=== PATIENT | male | born 1990 | race African-American/Black ===

== ENCOUNTER 2020-01-11 14:31 | Emergency (ER) | payer OTHER, SELFPAY ==
--- NOTE | ~2020-01-11 | XR_ITS ---
EXAMINATION: XR chest 1V portable EXAM DATE: 01/11/2020 15:49 INDICATION: Headache, cough. Exposed to COVID-19. TECHNIQUE: Portable AP frontal chest x-ray was obtained. Comparison is made to prior examination from 05/29/2019. FINDINGS: The lungs are clear. There are no pleural effusions. The cardiomediastinal silhouette is within normal limits. There is no pneumothorax suspected. The bones and soft tissues are unremarkab le. IMPRESSION: No acute cardiopulmonary findings. Reviewed, dictated and finalized at location A.
[2020-01-11 15:16] VITALS: BP 101/75; PULSE 57; RESP 18; TEMP 37; O2SAT 100
--- NOTE | 2020-01-11 15:27 | ED.GENADULT ---
HPI - General Adult General Chief complaint: Chest Pain <Bal Matos PA-C - Last Filed: 01/11/20 17:20> Stated complaint: sob, cough <Bal Matos PA-C - Last Filed: 01/11/20 17:20> Time Seen by Provider: 01/11/20 14:40 <Bal Matos PA-C - Last Filed: 01/11/20 17:20> Source: patient <Bal Matos PA-C - Last Filed: 01/11/20 17:20> Mode of arrival: ambulatory <Bal Matos PA-C - Last Filed: 01/11/20 17:20> Limitations: no limitations <Bal Matos PA-C - Last Filed: 01/11/20 17:20> History of Present Illness HPI narrative: Patient is a 29-year-old male who presents to emergency department for evaluation of upper respiratory symptoms for the last several days patient notes some shortness of breath associated with the cough patient denies known sick contacts but has been around other individuals. Patient denies fever vomiting diarrhea. Patient was tested 2 weeks ago and had a negative COVID test but did not have symptoms at that time. Patient on arrival resting comfortably in the room in no distress <Bal Matos PA-C - Last Filed: 01/11/20 17:20> Related Data Allergies/adverse reactions: Allergies Allergy/AdvReac Type Severity Reaction Status Date / Time No Known Allergies Allergy Verified 05/29/19 21:52 <Bal Matos PA-C - Last Filed: 01/11/20 17:20> Review of Systems Review of Systems: All systems reviewed & are unremarkable except as noted in HPI and below <Bal Matos PA-C - Last Filed: 01/11/20 17:20> [facility] Past Medical History Medical History: Medical History Broken jaw <Bal Matos PA-C - Last Filed: 01/11/20 17:20> Surgical History Surgical History: Surgical History History of mandibular surgery <JOCELYNN Bui Last Filed: 01/11/20 17:20> Family History Family History: Family History Sibling Heart problem Has had heart surgery <Bal Matos PA-C - Last Filed: 01/11/20 17:20> Social History Social History: Social History Additional smoking assessment comments: Smokes 1 cigarillo a day Alcohol intake: current Substance use type: marijuana Gender identity (if verbalized by the patient): Male <Bal Matos PA-C - Last Filed: 01/11/20 17:20> Exam Narrative: Exam Narrative: GENERAL: Well-appearing, well-nourished, and in no acute distress. HEAD: Normocephalic, atraumatic. EYES: PERRLA and EOMI. ENT: Nares clear, no rhinorrhea or epistaxis. Mucous membranes moist. Oropharynx without tonsillar hypertrophy exudate or other lesions. CHEST: Clear to auscultation. No respiratory distress. No wheezes rales or rhonchi HEART: Regular rate and rhythm. No murmur heard. EXTREMITIES: Normal range of motion. No edema. SKIN: Warm, dry, no rash. NEURO: No focal deficits. Alert and oriented x3. PSYCH: Normal mood and affect. <Bal Matos PA-C - Last Filed: 01/11/20 17:20> Course Course Emergency Course: Patient in the room in no distress aware of case findings treatment plan and diagnosis agreeing to follow-up with primary care and to self quarantine until COVID-19 results have been obtained patient in the room in no distress no pneumonia or other high risk changes in the blood work or imaging felt appropriate for outpatient reevaluation given reasons to return <Bal Matos PA-C - Last Filed: 01/11/20 17:20> Vital Signs Vital signs: Vital Signs Temperature 98.6 F 01/11/20 15:16 Pulse Rate 57 L 01/11/20 15:16 Respiratory Rate 18 01/11/20 15:16 Blood Pressure 101/75 01/11/20 15:16 Pulse Oximetry 100 01/11/20 15:16 Temperature 98.6 F 01/11/20 15:16 Pulse Rate 58 L 01/11/20 17:18
--- NOTE | 2020-01-11 15:28 | ECG_ITS ---
Measurements Intervals [place] Rate: 57 P: 59 NV: 154 QRS: 42 QRSD: 87 T: -25 QT: 367 QTc: 360 Interpretive Statements SINUS BRADYCARDIA VOLTAGE CRITERIA FOR LVH ST ELEVATION CONSISTENT WITH PERICARDITIS, OR EARLY REPOLARIZATION T WAVE ABNORMALITY IN INFERIOR LEADS- CONSIDER ISCHEMIA ABNORMAL ECG Electronically Signed On 01-12-2020 10:49:14 CDT by Jordi Horan D.O.
[2020-01-11 16:00] LABS: Basophils Percent Auto 0.6 % (0.2-1.2); Eosinophils Absolute Auto 0.1 K/mm3 (0-0.3); Eosinophils Percent Auto 2.2 % (0-4.4); Hematocrit 44.3 % (42.0-52.0); Hemoglobin 14.7 g/dL (14.0-18.0); Immature Granulocyte Absolute 0.02 K/mm3 (0.00-0.031); Immature Granulocyte Percent A 0.4 % (0-0.5); Lymphocytes Percent Auto 38.5 % (18.3-44.2); Mean Corpuscular HGB Conc 33.2 g/dl (32-36); Mean Corpuscular Hemoglobin 29.6 pg (26-34); Mean Corpuscular Volume 89.3 fl (80-100); Mean Platelet Volume 11.1 fl (7.4-10.4); Monocytes Absolute Auto 0.4 K/mm3 (0.1-0.6); Monocytes Percent Auto 6.4 % (2.6-8.5); Neutrophils Absolute Auto 2.8 K/mm3 (1.3-6.7); Neutrophils Percent Auto 51.9 % (45.5-73.1); Platelet Count Result 198 k/mm3 (150-375); Red Blood Count 4.96 M/mm3 (4.6-6.20); Red Cell Distribution Width 12.9 % (11.5-14.5); White Blood Count 5.5 K/mm3 (4.5-10.0)
[2020-01-11 16:09] LABS: Prothrombin Time 12.5 Seconds (11.1-14.7)
[2020-01-11 16:10] LABS: Partial Thromboplastin Time 27.4 SECONDS (22.3-36.8)
[2020-01-11 16:13] LABS: Anion Gap 7 mmol/L (8-16); Blood Urea Nitrogen 14 mg/dL (9-20); Calcium 9.8 mg/dL (8.4-10.2); Carbon Dioxide 27 mmol/L (22-30); Chloride 103 mmol/L (98-107); Estimated CRCL calculation 104 ml/min; Estimated Glomerular Filt Rate > 60; Glucose 93 mg/dL (75-110); Potassium 4.2 mmol/L (3.4-5.0); Sodium 137 mmol/L (137-145)
[2020-01-11 16:24] LABS: Troponin I < 0.012 ng/mL (0.000-0.034)
[2020-01-11 17:18] VITALS: BP 127/83; PULSE 58; RESP 18
[2020-01-12 14:00] LABS: SARS-CoV-2 RNA PCR Negative
== END 2020-01-11 17:33 | disposition home or self-care (01) ==
PROVIDERS: Emergency Medicine Emergency Medical Services; Emergency Provider General Practice
DX: J06.9 Acute upper respiratory infection, unspecified (principal); Z20.828 Contact with and (suspected) exposure to other viral communicable diseases; R00.1 Bradycardia, unspecified
CPT/HCPCS: 36415; 71045; 80048; 84484; 85025; 85610; 85730; 87635; 93005; 99284; C9803; U0003